=== PATIENT | male | born 1985 | race American Indian/Alaskan Native ===

== ENCOUNTER 2016-04-01 21:29 | Emergency (ER) | payer OTHER ==
[2016-04-01] MEDS ORDERED: TYLENOL ONE (21:47)
[2016-04-01] MEDS ORDERED: TYLENOL PO ONE (21:48)
--- NOTE | 2016-04-01 23:51 | Emergency Department Report ---
HPI - General Chief Complaint: Nausea/Vomiting/Diarrhea Time Seen by Provider: 04/01/16 23:46 - HPI HPI: Patient here complaining nausea and vomiting on and off with generalized achy and to include headache times one week. Patient reports pain is 10 out of 10 and aching. He reports that he has runny nose and fever or chills. Denies any abdominal or back pain. Denies any urinary frequency urgency or burning. Last time he vomited was yesterday per Patient. He said he was taking over-the- counter cold and cough medication without any relief. Denies any diarrhea. Denies any abdominal or testicular pain. He reports coughing. She said he feels like he has the flu. Temperature is 102.3 in triage and patient was given Tylenol. ED Past Medical Hx - Past Medical History Previous Medical History?: Yes Hx Asthma: Yes - Surgical History Past Surgical History?: No - Family History Family history: no significant - Social History Smoking Status: Never Smoker Substance Use Type: None - Medications Home Medications: Home Medications Medication Instructions Recorded Confirmed Last Taken Type Promethazine [Phenergan TAB] 25 mg PO Q8HR PRN #15 tab 04/02/16 Unknown Rx guaiFENesin/CODEINE [Robitussin AC] 10 ml PO BID PRN #100 ml 04/02/16 Unknown Rx ED Review of Systems ROS: Stated complaint: FEVER, BODY PAIN Other details as noted in HPI Comment: All other systems reviewed and negative Constitutional: chills, fever Eyes: denies: eye pain, eye discharge ENT: throat pain, congestion. denies: ear pain, epistaxis Respiratory: cough. denies: orthopnea, shortness of breath, SOB with exertion, SOB at rest, stridor, wheezing Cardiovascular: denies: chest pain, palpitations, edema, syncope Gastrointestinal: nausea, vomiting. denies: abdominal pain, diarrhea, constipation Genitourinary: denies: urgency, dysuria, frequency, hematuria, discharge, testicular pain, testicular mass Skin: denies: rash Neurological: headache. denies: weakness, numbness, paresthesias, confusion, abnormal gait, vertigo Physical Exam - Physical Exam Vital Signs: Vital Signs 04/01/16 04/01/16 21:40 22:45 Temperature 102.3 F H Pulse Rate 102 H Respiratory 22 18 Rate Blood Pressure 117/73 O2 Sat by Pulse 99 Oximetry General: This is a 31-year-old male well-nourished well-developed in no acute distress. Physical Exam: Head: Normocephalic atraumatic Mouth: Moist, no pharyngeal exudate or erythema. Uvula is midline and oral airway is patent. No gingival enlargement or dental tenderness. No facial swelling. No peritonsillar abscesses. Neck: Supple, no C-spine tenderness, no tracheal deviation. Nontender to palpate. no adenopathy Ears: Bilateral TMs congested without erythema .bilateral EAC without any redness swelling or drainage Eyes: Bilateral pupils equal and reactive to light, bilateral EOM intact. Bilateral sclera and conjunctiva without injection. Normal accommodation Nose: Mucosa moist, positive congestion no erythema. Positive clear drainage. maxillary and frontal sinus non-tender to palpate. Lungs: Clear to auscultate bilaterally no rhonchi wheezes or rales. Normal work of breathing . Dry cough Abdomen: Nontender to palpate in all quadrants. No guarding or rebound tenderness. Positive bowel sounds in all quadrants. No CVA tenderness extremity; No CCE. +2 pulses. No neurovascular compromise Cardiovascular: S1-S2, regular rate rhythm. No murmurs. Skin: clean Dry and intact no rash no lesions Psych: Normal mood and behavior ED Course Vital Signs 04/01/16 04/01/16 21:40 22:45 Temperature 102.3 F H Pulse Rate 102 H Respiratory 22 18 Rate Blood Pressure 117/73 O2 Sat by Pulse 99 Oximetry Vital Signs 04/01/16 04/01/16 04/02/16 21:40 22:45 01:13 Temperature 102.3 F H 98 F Pulse Rate 102 H 82 Respiratory 22 18 16 Rate Blood Pressure 117/73 Blood Pressure 100/62 [Left] O2 Sat by Pulse 99 100 Oximetry - Reevaluation(s) Reevaluation #1: 04/02/16 00:06 Patient stable. IV fluid, Zofran and Toradol. Awaiting chest x-ray, strep and flu Reevaluation #2: 04/02/16 00:42 Patient stable after IV fluid. He said he is feeling better. ED Medical Decision Making - Lab Data Influenza A and B- Strep test negative. Strep culture pending - Radiology Data Radiology results: report reviewed Chest x-ray revealed normal findings. No acute cardiopulmonary processes - Medical Decision Making ED course: Patient here complaining of flulike symptoms. She was given 1 L IV fluid, Zofran 4 mg IV, Toradol 30 mg IV in emergency room. She was also given Tylenol plain sensitive 50 mg in triage area. I discussed this patient that his x-ray of chest was normal and strep and flu test was negative. Discussed with him that he has viral syndrome which is a viral infection. The patient that he needs to rotate Tylenol and Motrin [id number] for the next 48 hours if 4-6 hours to keep fever down. I instructed him that he needs to drink at least 2-3 L of water daily to keep hydrated. He was understanding of discharge instruction and discharged home with prescription for Phenergan and guaifenesin with codeine when necessary. I instructed him to follow-up with his primary care physician in 2 days and if he does not have one that he needs to follow-up at [facility]. Critical care attestation.: If time is entered above; I have spent that time in minutes in the direct care of this critically ill patient, excluding procedure time. ED Disposition Clinical Impression: Acute viral syndrome, Fever in adult, Cough Nausea & vomiting Qualifiers: Vomiting type: unspecified Vomiting Intractability: non-intractable Qualified Code(s): R11.2 - Nausea with vomiting, unspecified Disposition: DISCHARGED TO HOME OR SELFCARE Is pt being admited?: No Does the pt Need Aspirin: No Condition: Stable Instructions: Fever in Adults (ED), Acute Nausea and Vomiting (ED), Viral Syndrome (ED), Acute Cough (ED) Additional Instructions: Please increase her fluid intake to 2-3 L of fluid per day. Take nausea and cough medication as prescribed. These medications will cause drowsiness. Do not drive or operate heavy machinery while in medicine Please rotate Tylenol and Motrin as discussed. Take every 4-6 hours over the next 2 days for fever and body aches. Follow-up with your primary care physician in 2 days and if you do not have one day and follow-up with [facility]. Prescriptions: guaiFENesin/CODEINE [Robitussin AC] 10 ml PO BID PRN #100 ml PRN Reason: Cough Promethazine [Phenergan TAB] 25 mg PO Q8HR PRN #15 tab PRN Reason: Nausea Referrals: PRIMARY CARE, [Primary Care Provider] - 04/04/16 Forms: Accompanied Note, Work/School Release Form(ED)
[2016-04-01] MEDS ORDERED: ZOFRAN IV ONE (23:52)
[2016-04-01] MEDS ORDERED: NACL 0.9% 1000 ML 1,000 ML IV ONE (23:52)
[2016-04-01] MEDS ORDERED: TORADOL IV ONE (23:52)
--- NOTE | 2016-04-02 00:34 | XRay Report ---
FINAL REPORT PROCEDURE: XR CHEST ROUTINE 2V TECHNIQUE: PA and lateral chest radiographs were obtained. CPT 03428 HISTORY: cough, fever COMPARISON: No prior studies are available for comparison. FINDINGS: Heart: Normal. Mediastinum/Vessels: Normal. Lungs/Pleural space: Normal. Bony thorax: No acute osseous abnormality. Other: IMPRESSION: Normal examination.
[2016-04-02 01:14] VITALS: BP 100/62
== END 2016-04-02 01:22 | disposition home or self-care (01) ==
LOC: ED 21:29
DX: B34.9 Viral infection, unspecified (principal); R11.2 Nausea with vomiting, unspecified; R05 Cough; J45.909 Unspecified asthma, uncomplicated
CPT/HCPCS: 71020; 87116; 87400; 87430; 96361; 96374; 96375; 99283; J1885; J2405; J7030

== ENCOUNTER 2016-04-20 08:47 | Emergency (ER) | payer OTHER ==
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
[2016-04-20] MEDS ORDERED: MOTRIN PO ONE (12:27)
[2016-04-20] MEDS ORDERED: FLEXERIL PO ONE (12:27)
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
[2016-04-20 14:34] VITALS: BP 90/50
== END 2016-04-20 14:33 | disposition home or self-care (01) ==
LOC: ED 08:47
DX: M54.5 Low back pain (principal); J45.909 Unspecified asthma, uncomplicated; V89.2XXA Person injured in unspecified motor-vehicle accident, traffic, initial encounter; W22.11XA Striking against or struck by driver side automobile airbag, initial encounter; Y93.89 Activity, other specified; Y99.9 Unspecified external cause status; Y92.410 Unspecified street and highway as the place of occurrence of the external cause
CPT/HCPCS: 72128; 72131